=== PATIENT | female | born 1990 | race Caucasian/White ===

== ENCOUNTER → 2016-08-17 | Outpatient (CLI) | payer OTHER ==
[~2016-08-17] MED LIST: BCPILLS PO
== END | disposition home or self-care (01) ==
LOC: C.LAB 03:04
DX: Z02.83 Encounter for blood-alcohol and blood-drug test (principal)

== ENCOUNTER → 2017-04-01 | Outpatient (CLI) | payer OTHER ==
--- NOTE | 2017-04-01 09:18 | DIAGNOSTIC IMAGING REPORT ---
LEFT KNEE 4 VIEWS INCLUDING BILATERAL STANDING AP VIEWS CLINICAL HISTORY: LEFT ACL GRAFT TEAR COMPARISON: 02/20/2009 DISCUSSION: There are postsurgical changes of a left ACL repair. No fractures are visualized. The joint spaces appear well-preserved. There are no erosive or destructive changes. There is no radiographic evidence of significant joint effusion. IMPRESSION: 1. No acute findings 2. Postsurgical changes of a prior ACL repair on the left Electronically signed by: Artie Smith M.D. 04/01/2017 9:17 AM Dictated Date/Time: 04/01/2017 9:16 AM
== END | disposition home or self-care (01) ==
LOC: C.RDSM 09:09
PROVIDERS: ATTEND Internal Medicine
DX: Z98.890 Other specified postprocedural states (principal)